=== PATIENT | male | born 1995 | race Two or more races ===

== ENCOUNTER 2020-08-12 17:34 | Emergency (ER) | payer OTHER ==
[~2020-08-12] VITALS: Ht 182.9 cm; Wt 131.5 kg
[2020-08-12 20:23] VITALS: BP 141/77
== END 2020-08-12 20:37 | disposition home or self-care (01) ==
LOC: ER 17:34
DX: S16.1XXA Strain of muscle, fascia and tendon at neck level, initial encounter (principal); V49.9XXA Car occupant (driver) (passenger) injured in unspecified traffic accident, initial encounter; Y93.89 Activity, other specified; Y92.89 Other specified places as the place of occurrence of the external cause; Y99.8 Other external cause status
CPT/HCPCS: 70450; 72125